=== PATIENT | male | born 1995 | race Hispanic/Latino ===

== ENCOUNTER 2017-08-06 10:40 | Emergency (ER) | payer OTHER ==
[2017-08-06 10:41] VITALS: BMI 17.6
[2017-08-06 10:42] VITALS: BP 141/82; PULSE 92; RESP 17; TEMP 98.2; O2SAT 97
[2017-08-06] MEDS ORDERED: Phenylephrine 0.5% Nasal Spray NAS STA (11:07)
--- NOTE | 2017-08-06 11:21 | ED PDOC ---
HPI: CCC, URI, Sore Throat Time Seen by Provider: 08/06/17 11:00 Chief Complaint (Nursing): ENT Problem Chief Complaint (Provider): NOSEBLEED History Per: Patient (21 Y/O MALE HERE WITH BLEEDING FROM RIGHT NARE NOTED TODAY. HAS H/O NOSEBLEEDS BUT STATES HAS NOT BEEN IN AWHILE. NOT TAKING ANY ANTICOAGULANT/ASA. RECENT EAR INFECTION WITH COMPLETION OF ANTIBIOTICS.) Past Medical History Reviewed: Historical Data, Nursing Documentation, Vital Signs Vital Signs: Last Vital Signs Temp 98.2 F 08/06/17 10:41 Pulse 92 H 08/06/17 10:41 Resp 17 08/06/17 10:41 BP 141/82 08/06/17 10:41 Pulse Ox 97 08/06/17 12:02 - Family History Family History: States: No Known Family Hx - Allergies Allergies/Adverse Reactions: Allergies Allergy/AdvReac Type Severity Reaction Status Date / Time No Known Allergies Allergy Verified 08/06/17 10:58 Review of Systems ROS Statement: Except As Marked, All Systems Reviewed And Found Negative ENT: Positive for: Other (EPISTAXIS) Physical Exam - Reviewed Nursing Documentation Reviewed: Yes Vital Signs Reviewed: Yes - Physical Exam Appears: Positive for: Well, Non-toxic, No Acute Distress Head Exam: Positive for: ATRAUMATIC, NORMAL INSPECTION, NORMOCEPHALIC Skin: Positive for: Normal Color, Warm, DRY Eye Exam: Positive for: EOMI, Normal appearance, PERRL ENT: Negative for: Normal ENT Inspection (RIGHT NARE ANTERIOR WITH SMALL AMOUNT OF BLEEDING NOTED.) Neck: Positive for: Normal, Painless ROM Cardiovascular/Chest: Positive for: Regular Rate, Rhythm Respiratory: Positive for: CNT, Normal Breath Sounds Gastrointestinal/Abdominal: Positive for: Normal Exam, Bowel Sounds, Soft Back: Positive for: Normal Inspection Extremity: Positive for: Normal ROM Neurologic/Psych: Positive for: Alert, Oriented - ECG O2 Sat by Pulse Oximetry: 97 - Progress ED Course And Treament: NEOSYNEPHRINE 0.5% SOAKED GUAZE PLACED IN RIGHT NARE. Disposition - Clinical Impression Clinical Impression: Epistaxis - Patient ED Disposition Is Patient to be Admitted: No - Disposition Referrals: Provider TBD, [Primary Care Provider] - Kalen Fleming MD [Staff Provider] - Disposition: Routine/Home Disposition Time: 12:01 Condition: FAIR Instructions: Nosebleed (ED) Forms: [facility] (Thai)
== END 2017-08-06 12:44 | disposition home or self-care (01) ==
LOC: SUPCPDRO 10:40 → H.ER 10:40
DX: R04.0 Epistaxis (principal)

== ENCOUNTER 2019-01-22 18:25 | Emergency (ER) | payer BC, OTHER ==
[2019-01-22 18:25] VITALS: BMI 17.6
[2019-01-22] MEDS ORDERED: Sodium Chloride 0.9% 1,000 ML IV STA (20:28)
[2019-01-22 21:10] LABS: HEMOGLOBIN 13.9 g/dL (12.0-18.0); MEAN CELL VOLUME 86.7 fl (80.0-94.0); MEAN CORPUSCULAR HEMOGLOBIN 29.5 pg (27.0-31.0); RBC 4.7 Mil/uL (4.40-5.90); RED CELL DISTRIBUTION WIDTH 12.9 % (11.5-14.5); WHITE BLOOD COUNT 6.2 K/uL (4.8-10.8)
[2019-01-22 21:25] LABS: BLOOD UREA NITROGEN 9 mg/dl (9-20); CALCIUM 9.3 mg/dL (8.4-10.2); GFR NON-AFRICAN AMERICAN > 60
--- NOTE | 2019-01-22 22:09 | ED PDOC ---
HPI: Headache Time Seen by Provider: 01/22/19 20:05 Chief Complaint (Nursing): Headache History Per: Patient History/Exam Limitations: no limitations Onset/Duration Of Symptoms: Hrs Current Symptoms Are (Timing): Better Quality: Tightness Preceeding Symptoms: denies: Visual Disturbances Associated Symptoms: denies: Nausea, Vomiting, Extremity Weakness Additional Complaint(s): 23 year old with no PMHx presenting with headache x 3 days with lower extremity numbness. States that he has had the headache for the past 3 days but it has been improving, nonthunderclap, not maximal in onset, not associated with fevers or neck stiffness. States he went to Urgent Care this morning and had blood drawn, was sent home without results and was not given medication, states he was called late in the afternoon that his sodium was 131 and that he should come to the E.R. for recheck of levels and IV fluids. Patient relates that since this morning he has had numbness to his mid-thigh downwards of the entire leg, but denies weakness. Past Medical History Reviewed: Historical Data, Nursing Documentation, Vital Signs Vital Signs: Last Vital Signs Temp 99.0 F 01/22/19 18:52 Pulse 106 H 01/22/19 18:52 Resp 16 01/22/19 18:52 BP 124/83 01/22/19 18:52 Pulse Ox 98 01/22/19 18:52 - Medical History PMH: No Chronic Diseases - Family History Family History: States: Unknown Family Hx - Home Medications Home Medications: Ambulatory Orders Medication Instructions Recorded Aspirin/Acetaminophen/Caffeine 1 each PO Q8 PRN #30 tablet 01/23/19 [Excedrin Migraine Geltab] - Allergies Allergies/Adverse Reactions: Allergies Allergy/AdvReac Type Severity Reaction Status Date / Time No Known Allergies Allergy Verified 01/22/19 18:52 Review of Systems ROS Statement: Except As Marked, All Systems Reviewed And Found Negative Neurological: Positive for: Numbness, Headache. Negative for: Weakness Physical Exam - Reviewed Nursing Documentation Reviewed: Yes Vital Signs Reviewed: Yes - Physical Exam Appears: Positive for: Well, Non-toxic, No Acute Distress Head Exam: Positive for: ATRAUMATIC, NORMAL INSPECTION, NORMOCEPHALIC Skin: Positive for: Normal Color, Warm, DRY Eye Exam: Positive for: EOMI, Normal appearance, PERRL ENT: Positive for: Normal ENT Inspection Neck: Positive for: Normal, Painless ROM Cardiovascular/Chest: Positive for: Regular Rate, Rhythm Respiratory: Positive for: CNT, Normal Breath Sounds Gastrointestinal/Abdominal: Positive for: Normal Exam, Soft Back: Positive for: Normal Inspection Extremity: Positive for: Normal ROM Neurological/Psych: Positive for: Awake, Alert, Normal Tone, Symmetric/Intact Strength, Oriented, Mood/Affect (Normal), Cerebellar Tests (Normal), Motor/Sensory Deficits (5/5 of all extremities, subjective decrease in sensation to lower extremity in no nerve distribution pattern), supervisor frame sample and pattern II-XII (Normal), Other (Normal DTR's on lower extremity). Negative for: Lethargic, Listless, Facial Droop - Laboratory Results Result Diagrams: 01/22/19 21:06 01/22/19 21:06 - ECG O2 Sat by Pulse Oximetry: 98 Pulse Ox Interpretation: Normal Medical Decision Making Medical Decision Makin23 year old with no PMHx presenting with headache and numbness --Patient appears completely comfortable and stable --Headache possibly related to complicated migraine causing numbness --Will check labs, give IVF, toradol, and CT head 0000 --CT negative, labs within normal limits --PAtient reports symptoms are improving --Patient able to walk normally --Advised patient that if symptoms worsen or don't completley resolve in 2 - 3 days, he should return ot the E.D. for further testing as warratned --Very well appearing upon discharge Disposition - Clinical Impression Clinical Impression: Migraine Counseled Patient/Family Regarding: Studies Performed, Diagnosis, Need For Followup, Rx Given - Disposition Referrals: Blake eKith MD [Medical Doctor] - Disposition: Routine/Home Disposition Time: 00:00 Condition: IMPROVED Additional Instructions: As discussed, if the numbness hasn't resolved in 2 -3 days, or the headache worsens, or you develop weakness or any other concerning symptoms, please return to the E.R. Prescriptions: Aspirin/Acetaminophen/Caffeine [Excedrin Migraine Geltab] 1 each PO Q8 PRN #30 tablet PRN Reason: Pain, Moderate (4-7) Instructions: Migraine Headache (DC) Forms: [employer] (Tajik)
[2019-01-23 00:48] VITALS: BP 121/72; PULSE 87; RESP 18; TEMP 98.8
[2019-01-23 02:25] VITALS: O2SAT 98
--- NOTE | 2019-01-23 08:45 | CT ---
Date of service: 01/22/2019 PROCEDURE: CT HEAD WITHOUT CONTRAST. HISTORY: headache, numbness to mid-thigh downwards COMPARISON: None available. TECHNIQUE: Axial computed tomography images were obtained through the head/brain without intravenous contrast. Radiation dose: Total exam DLP = 764.32 mGy-cm. This CT exam was performed using one or more of the following dose reduction techniques: Automated exposure control, adjustment of the mA and/or kV according to patient size, and/or use of iterative reconstruction technique. FINDINGS: HEMORRHAGE: No intracranial hemorrhage. BRAIN: Wick-white matter differentiation is preserved. There is no mass, mass effect or abnormal extra-axial fluid collection. There is no territorial infarction. The midline sagittal structures are normal. VENTRICLES: The ventricles are normal in size, shape and configuration. CALVARIUM: There is no calvarial fracture or extracranial soft tissue swelling. PARANASAL SINUSES: Predominantly clear. MASTOID AIR CELLS: Predominantly clear. OTHER FINDINGS: None. IMPRESSION: No acute intracranial abnormality. A preliminary report was provided by [employer].
== END 2019-01-23 00:49 | disposition home or self-care (01) ==
LOC: H.ER 18:25
DX: G43.909 Migraine, unspecified, not intractable, without status migrainosus (principal)
CPT/HCPCS: 70450; 80048; 85027; 96361; 96374; 99285; J1885; J7030